=== PATIENT | female | born 1985 | race Caucasian/White ===

== ENCOUNTER 2020-12-25 17:53 | Emergency (ER) | payer OTHER ==
[~2020-12-25] VITALS: Ht 162.6 cm; Wt 66.8 kg
[2020-12-25 19:17] VITALS: BP 114/60; TEMP 98.4
[2020-12-25] MEDS ORDERED: CRUTCHES MC (20:03)
[2020-12-25 20:09] VITALS: PULSE 65
== END 2020-12-25 20:12 | disposition home or self-care (01) ==
LOC: COL.ER 17:53
DX: S93.401A Sprain of unspecified ligament of right ankle, initial encounter (principal); S93.601A Unspecified sprain of right foot, initial encounter; X50.1XXA Overexertion from prolonged static or awkward postures, initial encounter